=== PATIENT | male | born 1955 | race Caucasian/White ===

== ENCOUNTER 2024-01-23 22:36 | Inpatient (IN) | payer MEDICARE, OTHER ==
[~2024-01-23] VITALS: Ht 185.4 cm; Wt 95.5 kg
[2024-01-24 01:30] VITALS: BP 151/76
[2024-01-24] MEDS ORDERED: INSULIN GL300 UNIT/1 SQ (01:45)
[2024-01-24] MEDS ORDERED: HUMULIN R100 UNIT/1 SC (01:50)
[2024-01-24] MEDS ORDERED: Glucagon Emergen1 MG (01:53)
[2024-01-24] MEDS ORDERED: Glucose Gel38 GM PO (01:53)
[2024-01-24] MEDS ORDERED: Vitamin C100 MG PO (01:55)
[2024-01-24] MEDS ORDERED: COLCHICINE0.6 MG PO (01:55)
[2024-01-24] MEDS ORDERED: ATOR20 PO (01:55)
[2024-01-24] MEDS ORDERED: DIGOX250 MCG PO (01:56)
[2024-01-24] MEDS ORDERED: Florastor250 MG PO (01:57)
[2024-01-24] MEDS ORDERED: FERROUS GLUCON324 M7 PO (01:57)
[2024-01-24] MEDS ORDERED: Prozac20 MG PO (01:57)
[2024-01-24] MEDS ORDERED: K-Dur10 MEQ PO (01:58)
[2024-01-24] MEDS ORDERED: Flomax0.4 MG PO (01:59)
[2024-01-24] MEDS ORDERED: ELIQUIS2.5 MG PO (02:00)
[2024-01-24] MEDS ORDERED: ELIQUIS5 M2 PO (02:02)
[2024-01-24] MEDS ORDERED: CALCIUM 600-VI1 EAC6 PO (02:04)
[2024-01-24] MEDS ORDERED: PANT40 PO (02:05)
[2024-01-24] MEDS ORDERED: Carvedilol12.5 MG PO (02:05)
[2024-01-24] MEDS ORDERED: ROPI1 PO (02:06)
[2024-01-24] MEDS ORDERED: PAXLOVID 150-11 EAC1 PO (02:06)
[2024-01-24] MEDS ORDERED: ALBU90OI INH (02:07)
[2024-01-24] MEDS ORDERED: ACET500 PO (02:07)
[2024-01-24] MEDS ORDERED: ALBU2.5V5 INH (02:08)
[2024-01-24] MEDS ORDERED: BISA5EC PO (02:09)
[2024-01-24] MEDS ORDERED: Magic Bullet10 MG PR (02:10)
[2024-01-24] MEDS ORDERED: CEPACOL THROAT1 EAC1 MM (02:10)
[2024-01-24] MEDS ORDERED: LOPE2C PO (02:12)
[2024-01-24] MEDS ORDERED: LACT10SY PO (02:12)
[2024-01-24] MEDS ORDERED: ALMACONE SUSPE355 ML PO (02:13)
[2024-01-24] MEDS ORDERED: OXYB5 PO (02:14)
[2024-01-24] MEDS ORDERED: NITR.4SL SL (02:14)
[2024-01-24] MEDS ORDERED: OXYC10TA19 PO (02:15)
[2024-01-24] MEDS ORDERED: FT SENNA-S 8.61 EACH PO (02:16)
[2024-01-24] MEDS ORDERED: TRAM50 PO (02:17)
[2024-01-24] MEDS ORDERED: DICLOFENAC SOD100 GM TOP (02:18)
[2024-01-24] MEDS ORDERED: HYDROmorphone HCl/Pf 1MG SYR IV PRN (02:55)
[2024-01-24] MEDS ORDERED: Ondansetron 4 MG SoluTab MM PRN (02:55)
[2024-01-24] MEDS ORDERED: rOPINIRole HCl 2 MG Tab PO SCH (03:00)
[2024-01-24] MEDS ORDERED: Lactated Ringer's 1,000 ML IV SCH (03:10)
[2024-01-24] MEDS ORDERED: Ciprofloxacin 400MG/D5 200ML 200 ML IV SCH (03:21)
[2024-01-24] MEDS ORDERED: MetroNIDAZOLE 500MG/NS 100 ml 100 ML IV SCH (03:22)
[2024-01-24 03:49] VITALS: BP 151/81
[2024-01-24 04:28] LABS: BASOPHILS ABSOLUTE AUTO 0.02 K/mm3 (0.00-0.23); BASOPHILS PERCENT AUTO 0 % (0-2); EOSINOPHILS ABSOLUTE AUTO 0.02 K/mm3 (0.00-0.68); EOSINOPHILS PERCENT AUTO 0 % (0-6); Hematocrit 37.3 % (37.0-53.0); Hemoglobin 11.9 g/dL (13.5-17.5); IMMATURE GRAN ABSOLUTE AUTO 0.06 K/mm3 (0.00-0.10); IMMATURE GRAN PERCENT AUTO 0 % (0-1); LYMPHOCYTES ABSOLUTE AUTO 1.62 K/mm3 (0.84-5.20); LYMPHOCYTES PERCENT AUTO 11 % (21-46); MONOCYTES ABSOLUTE AUTO 1.07 K/mm3 (0.16-1.47); MONOCYTES PERCENT AUTO 7 % (4-13); Mean Corpuscular HGB 27.9 pg (26.0-34.0); Mean Corpuscular HGB Conc 31.9 g/dL (31.5-36.5); Mean Corpuscular Volume 87 fL (80-100); NEUTROPHILS ABSOLUTE AUTO 11.96 K/mm3 (1.96-9.15); NEUTROPHILS PERCENT AUTO 81 % (41-73); Platelet Count 220 K/mm3 (150-400); RDW Coefficient Variation 14.8 % (11.7-14.2); RDW Standard Deviation 47.4 fL (35.1-46.3); Red Blood Cell Count 4.27 M/mm3 (4.30-5.90); White Blood Cell Count 14.75 K/mm3 (4.00-11.30)
[2024-01-24] MEDS ORDERED: Acetaminophen 325 MG TABLET PO PRN (04:45)
[2024-01-24 04:53] LABS: Albumin, Blood 3.5 g/dL (3.4-5.0); Albumin/Globulin Ratio 0.9 (0.8-1.8); Bilirubin, Total 1.3 mg/dL (0.1-1.0); Bun/Creatinine Ratio 18.8 (12.0-20.0); Calcium, Blood 8.7 mg/dL (8.5-10.1); Creatinine, Blood 1.44 mg/dL (0.60-1.20); Potassium, Blood 4.3 mmol/L (3.5-5.5); Total Protein, Blood 7.5 g/dL (6.4-8.2)
[2024-01-24] MEDS ORDERED: Insulin Regular 100 UNIT/ML 10ML Vial SC SCH (06:00)
[2024-01-24] MEDS ORDERED: Pantoprazole Sodium 40 MG Injection IV SCH (06:00)
--- NOTE | 2024-01-24 06:00 | NUR ---
SHIFT SUMMARY MANOLO WAS ALERT AND FULLY ORIENTED WHEN HE ARRIVED TO THE UNIT. PT ABLE TO TRANSFER SELF TO BED W/ SBA. PT HAD CORLEY ON ADMIT, REPLACED WITH NEW CORLEY THIS SHIFT. PT HAS CHRONIC SEVERE BILAT KNEE PAIN. AND ABD PAIN FROM ACUTE WERO. NO INSULIN COVERAGE NEEDED THIS SHIFT. PT KEPT NPO TONIGHT. CURRENTLY RESTING IN BED AT A LOW POSITION W/ CALL LIGHT IN REACH. DIRECT ADMIT, DR SLATER IS ADMITTING
[2024-01-24 06:57] LABS: Source, Urine Foley catheter
[2024-01-24 07:21] LABS: Appearance, Urine Hazy (Clear); Bilirubin, Urine Neg (Neg); Blood, Urine 5+ (Neg); Color, Urine Yellow (P-Yellow); Glucose Qualitative, Urine Neg (Neg); Ketones, Urine Neg (Neg); Leukocyte Esterase, Urine 3+ (Neg); Nitrite, Urine Neg (Neg); Protein, Urine 3+ (Neg); Specific Gravity, Urine 1.015 (1.003-1.022); Urobilinogen, Urine NORM (Normal)
[2024-01-24 07:34] VITALS: BP 138/81
[2024-01-24 07:49] LABS: Bacteria Few /hpf; Squamous Epithelial Cells Not Seen /hpf (Few); Transitional Epithelial Cells Few /hpf (0-Rare); White Blood Cells, Urine 50-100 /hpf (0-5)
[2024-01-24] MEDS ORDERED: Enoxaparin 40 MG/0.4 ML SYR SC SCH (09:00)
[2024-01-24] MEDS ORDERED: Albuterol 2.5 MG/3 ML VIAL INH PRN (12:00)
[2024-01-24] MEDS ORDERED: Budesonide 0.5 MG/2 ML RESP INH SCH (12:05)
[2024-01-24] MEDS ORDERED: Ipratropium/Albuterol SulF 2.5-0.5MG/3 ML Amp INH SCH (12:05)
[2024-01-24 15:12] VITALS: BP 162/72
--- NOTE | 2024-01-24 17:26 | NUR ---
SHIFT SUMMARY PT TOLERATING CLEAR LIQUIDS WELL TODAY. MOSTLY WATER AT THIS TIME. PAIN CONTROLLED PER EMAR, LOCALIZED TO RUQ AND KNEES. PLAN IS FOR PATIENT TO BE NPO AT MIDNIGHT. CAREGIVER, LAISHA, FROM [facility] IN [place] CALLED FOR UPDATE LEFT HER NUMBER AND REQUESTED CALL ONCE DISCHARGE IS PLANNED. [phone], OPTION 2. PT CALLING APPROPRIATLY.
[2024-01-24] MEDS ORDERED: Lactobacil 2-S.Thermo-Bifido 1 1 Cap PO SCH (19:00)
[2024-01-24 19:16] VITALS: BP 157/69
[2024-01-24] MEDS ORDERED: NS 250 ML IV PRN (20:55)
[2024-01-25] VITALS (16 sets, daily range): BP systolic 115–174; BP diastolic 59–93
[2024-01-25 04:56] LABS: BASOPHILS ABSOLUTE AUTO 0.02 K/mm3 (0.00-0.23); BASOPHILS PERCENT AUTO 0 % (0-2); EOSINOPHILS ABSOLUTE AUTO 0.02 K/mm3 (0.00-0.68); EOSINOPHILS PERCENT AUTO 0 % (0-6); Hematocrit 33.2 % (37.0-53.0); Hemoglobin 10.8 g/dL (13.5-17.5); IMMATURE GRAN ABSOLUTE AUTO 0.17 K/mm3 (0.00-0.10); IMMATURE GRAN PERCENT AUTO 1 % (0-1); LYMPHOCYTES ABSOLUTE AUTO 1.33 K/mm3 (0.84-5.20); LYMPHOCYTES PERCENT AUTO 8 % (21-46); MONOCYTES ABSOLUTE AUTO 1.06 K/mm3 (0.16-1.47); MONOCYTES PERCENT AUTO 6 % (4-13); Mean Corpuscular HGB 28.1 pg (26.0-34.0); Mean Corpuscular HGB Conc 32.5 g/dL (31.5-36.5); Mean Corpuscular Volume 86 fL (80-100); Mean Platelet Volume 11.3 fL (9.1-12.4); NEUTROPHILS ABSOLUTE AUTO 13.97 K/mm3 (1.96-9.15); NEUTROPHILS PERCENT AUTO 84 % (41-73); Platelet Count 185 K/mm3 (150-400); RDW Coefficient Variation 14.8 % (11.7-14.2); RDW Standard Deviation 47.2 fL (35.1-46.3); Red Blood Cell Count 3.85 M/mm3 (4.30-5.90); White Blood Cell Count 16.57 K/mm3 (4.00-11.30)
[2024-01-25 05:24] LABS: Albumin, Blood 2.7 g/dL (3.4-5.0); Albumin/Globulin Ratio 0.7 (0.8-1.8); Bilirubin, Total 0.9 mg/dL (0.1-1.0); Bun/Creatinine Ratio 19.9 (12.0-20.0); Calcium, Blood 8.1 mg/dL (8.5-10.1); Creatinine, Blood 1.51 mg/dL (0.60-1.20); Globulin, Blood 3.8 g/dL (2.2-4.0); Total Protein, Blood 6.5 g/dL (6.4-8.2)
--- NOTE | 2024-01-25 06:46 | NUR ---
SHIFT SUMMARY NOC. PT ADMIT FOR ACUTE WERO. PT NPO SINCE 0000. PT MEDICATED FOR PAIN WITH REPORTED RELIEF. CHRONIC CORLEY DRAINING DARK YELLOW URINE TO GRAVITY. FLUIDS RUNNING ORDERED. NEW ORDERS OBTAINED FOR TELEMETRY. BINDER LAYER REPORTED TO THIS RN THAT PT HAD A HEART RATE OF 180 BPM THAT LASTED LESS THAN 30 SECONDS AT 0430. THIS RN VISUALIZED PT AND AWOKE PT WHO DENIED SOB OR CP. NEW ORDERS OBTAINED FOR TELEMETRY. PT RESTED WITH EYES CLOSED AND CALL LIGHT IN REACH.
[2024-01-25] MEDS ORDERED: Indocyanine Green 25 MG Vial IV STA (10:34)
[2024-01-25] MEDS ORDERED: Lactated Ringer's 1,000 ML IV SCH ×2 (10:40→12:40)
--- NOTE | 2024-01-25 13:27 | NUR ---
PRE SURGERY NOTE PT A&OX4, BREATHING RA, IV TO R FA RUNNING LR, VSS. CORLEY DRAINING CLEAR YELLOW FLUID C MINIMAL SEDIMENT. Patient confirms NPO status and agrees with scheduled surgery. Pre-Op teaching done. Pt verbalizes understanding.TELE BOX SENT TO PACU. History, Chart, Medications and Allergies reviewed before start of procedure. PT TRANSFERRED BY BED.
[2024-01-25] MEDS ORDERED: Rocuronium Bromide 10 MG/ML 5ML Injection IV ONE (13:38)
[2024-01-25] MEDS ORDERED: propofoL 20 ML IV ONE (13:39)
[2024-01-25] MEDS ORDERED: FentaNYL Citrate 50 MCG/ML 2 ML Injection ONE ×2 (13:39→17:00)
[2024-01-25] MEDS ORDERED: Bupivacaine 0.5% HCl 5 MG/ML 30MLVIAL ONE (13:51)
[2024-01-25] MEDS ORDERED: Ondansetron HCl 2 MG / ML 2ML Vial ONE ×2 (14:29→17:09)
[2024-01-25] MEDS ORDERED: Sugammadex Sodium 200 MG/2ML SDV (100 MG/ML) ONE (14:30)
--- NOTE | 2024-01-25 18:06 | NUR ---
POST OP S/P ROBOTIC LAP WERO. X3 LAP SITES WITH EXOFIN CDI AND ANTHONY DRAIN RLQ WITH SCANT SS DRAINAGE. MEDICATED FOR PAIN/NAUSEA IN PACU BEFORE ARRIVAL TO UNIT. ON 2L O2 VIA NC TO MAINTAIN SATS >90%. ENCOURAGING DEEP BREATHING. WHEEZING HEARD T/O. RT NOTIFIED FOR PRN BREATHING TX. BARNEY PATENT. IVF INFUSING PER ORDERS. POST OP VSS AND IN PROGRESS. CALL LIGHT WITHIN REACH.
[2024-01-25] MEDS ORDERED: Insulin Regular 100 UNIT/ML 10ML Vial SC SCH (21:00)
[2024-01-26 02:09] VITALS: BP 134/74
[2024-01-26 04:21] VITALS: BP 143/69
[2024-01-26 06:58] VITALS: BP 127/73
--- NOTE | 2024-01-26 07:22 | NUR ---
SHIFT SUMMARY NOC. PT POD 1 FOR LAP WERO, DAPHNE, AND DRAINAGE OF ABCESS. PT TOLERATING CLEARS AND VOIDING VIA CORLEY. PT MEDICATED FOR PAIN WITH REPORTED RELIEF OF SX. PT NEEDED A BREATHING TREATMENT AND COUGHING UP SPUTUM. LAP SITES C/D/I AND ANTHONY DRAIN PRODUCING OUTPUT. PT ON TELEMETRY AND V PACED AFIB, NO EVENTS REPORTED. PT TITRATED DOWN TO RA. PT RESTED WITH EYES CLOSED AND CALL LIGHT IN REACH.
[2024-01-26 10:16] LABS: BASOPHILS ABSOLUTE AUTO 0.01 K/mm3 (0.00-0.23); BASOPHILS PERCENT AUTO 0 % (0-2); EOSINOPHILS ABSOLUTE AUTO 0.08 K/mm3 (0.00-0.68); EOSINOPHILS PERCENT AUTO 1 % (0-6); Hematocrit 29.1 % (37.0-53.0); Hemoglobin 9.5 g/dL (13.5-17.5); IMMATURE GRAN ABSOLUTE AUTO 0.06 K/mm3 (0.00-0.10); IMMATURE GRAN PERCENT AUTO 1 % (0-1); LYMPHOCYTES ABSOLUTE AUTO 1.41 K/mm3 (0.84-5.20); LYMPHOCYTES PERCENT AUTO 11 % (21-46); MONOCYTES ABSOLUTE AUTO 0.69 K/mm3 (0.16-1.47); MONOCYTES PERCENT AUTO 5 % (4-13); Mean Corpuscular HGB 28.5 pg (26.0-34.0); Mean Corpuscular HGB Conc 32.6 g/dL (31.5-36.5); Mean Corpuscular Volume 87 fL (80-100); Mean Platelet Volume 10.9 fL (9.1-12.4); NEUTROPHILS ABSOLUTE AUTO 10.69 K/mm3 (1.96-9.15); NEUTROPHILS PERCENT AUTO 83 % (41-73); Platelet Count 211 K/mm3 (150-400); RDW Standard Deviation 48.7 fL (35.1-46.3); Red Blood Cell Count 3.33 M/mm3 (4.30-5.90); White Blood Cell Count 12.94 K/mm3 (4.00-11.30)
[2024-01-26 11:04] LABS: Bun/Creatinine Ratio 20.1 (12.0-20.0); Calcium, Blood 7.7 mg/dL (8.5-10.1); Creatinine, Blood 1.54 mg/dL (0.60-1.20); Potassium, Blood 3.7 mmol/L (3.5-5.5)
[2024-01-26 15:16] VITALS: BP 156/87
--- NOTE | 2024-01-26 15:58 | NUR ---
ASSUMED CARE OF PT FROM MELINDA Crowe RN. PT RESTING IN BED, CALL LIGHT IN REACH. DENIES ANY NEEDS AT THIS TIME.
--- NOTE | 2024-01-26 16:09 | NUR ---
SHIFT SUMMARY PT POD 1 LAP WERO. ANTHONY DRAIN WITH MOD AMT SS DRAINAGE THIS SHIFT. TOLERATING CLEAR LIQUIDS WITH NO N/V. TOLERABLE PAIN. PT WAS UP TO CHAIR FOR APROX 1.5 HRS THEN REFUSED TO BE UP ANY LONGER. PT EDUCATED ON THE NEED TO AMBULATE
--- NOTE | 2024-01-26 17:16 | NUR ---
SUMMARY NO ACUTE CHANGES SINCE ASSUMING CARE OF PT. PT REQUESTED PAIN MEDS AFTER EPISODE OF SNEEZING THAT CAUSED INCREASED ABDOMINAL PAIN. IV ABX INFUSING PER ORDERS. CALL LIGHT IN REACH.
[2024-01-26 19:44] VITALS: BP 138/86
[2024-01-27 02:49] VITALS: BP 134/81
[2024-01-27 05:11] LABS: BASOPHILS ABSOLUTE AUTO 0.02 K/mm3 (0.00-0.23); BASOPHILS PERCENT AUTO 0 % (0-2); EOSINOPHILS ABSOLUTE AUTO 0.18 K/mm3 (0.00-0.68); EOSINOPHILS PERCENT AUTO 2 % (0-6); Hematocrit 29.8 % (37.0-53.0); Hemoglobin 9.5 g/dL (13.5-17.5); IMMATURE GRAN ABSOLUTE AUTO 0.03 K/mm3 (0.00-0.10); IMMATURE GRAN PERCENT AUTO 0 % (0-1); LYMPHOCYTES PERCENT AUTO 16 % (21-46); MONOCYTES ABSOLUTE AUTO 0.67 K/mm3 (0.16-1.47); MONOCYTES PERCENT AUTO 8 % (4-13); Mean Corpuscular HGB 27.7 pg (26.0-34.0); Mean Corpuscular HGB Conc 31.9 g/dL (31.5-36.5); Mean Corpuscular Volume 87 fL (80-100); Mean Platelet Volume 10.8 fL (9.1-12.4); NEUTROPHILS ABSOLUTE AUTO 5.87 K/mm3 (1.96-9.15); NEUTROPHILS PERCENT AUTO 73 % (41-73); Platelet Count 235 K/mm3 (150-400); Red Blood Cell Count 3.43 M/mm3 (4.30-5.90); White Blood Cell Count 8.07 K/mm3 (4.00-11.30)
[2024-01-27] MEDS ORDERED: OxyCODONE HCL 5 MG TAB PO PRN ×2 (05:15→11:20)
[2024-01-27 05:26] LABS: Calcium, Blood 7.6 mg/dL (8.5-10.1); Creatinine, Blood 1.42 mg/dL (0.60-1.20); Potassium, Blood 3.6 mmol/L (3.5-5.5)
[2024-01-27 07:26] VITALS: BP 144/73
--- NOTE | 2024-01-27 07:43 | NUR ---
SHIFT SUMMARY NOC. PT POD 2 FOR LAP WERO, DAPHNE, AND DRAINAGE OF ABCESS. PT TOLERATING CLEARS AND REPORTS BEING EAGER TO ADVANCE DIET. PT VOIDING VIA CROLEY. PT MEDICATED FOR PAIN WITH REPORTED RELIEF, NEW ORDERS FOR OXY RECEIVED. PT NEEDED BREATHING TREATMENTS THIS SHIFT WITH RT WITH IMPROVED BREATHING. PT COUGHING UP SPUTUM. LAP SITES C/D/I AND ANTHONY PRODUCING OUTPUT, ANTHONY DRAIN HAD MINIMAL LEAKAGE, DRESSING REINFORCED WITH DRAIN SPONGES OVER CHG TEGADERM. PT ON TELEMETRY WITH NO REPORTED EVENTS, V PACED IN 60S, AFIB. PT RESTED WITH EYES CLOSED AND CALL LIGHT IN REACH.
[2024-01-27] MEDS ORDERED: Nitroglycerin 0.4 MG SUBL SL PRN (11:25)
[2024-01-27] MEDS ORDERED: Bisacodyl 5 MG TabEC PO PRN (11:25)
[2024-01-27] MEDS ORDERED: oxyBUTYnin chloride 5 MG TAB PO PRN (11:25)
[2024-01-27] MEDS ORDERED: Docusate Sodium/Senna 1 Tab PO PRN (11:40)
[2024-01-27] MEDS ORDERED: Digoxin 0.25 MG Tab PO SCH (12:00)
[2024-01-27] MEDS ORDERED: FLUoxetine HCL 20 MG CAP PO SCH (12:00)
[2024-01-27 14:46] VITALS: BP 142/82
[2024-01-27] MEDS ORDERED: Carvedilol 6.25 MG Tab PO SCH (17:00)
--- NOTE | 2024-01-27 18:16 | NUR ---
SHIFT SUMMARY PT A/OX4 AND COOPERATIVE OF CARE. PT ABLE TO EXPRESS NEEDS AND CALLED APPROPIATE. PT VSS THROUGHOUT SHIFT. PT REPORTED SOME PAIN TO HIS ABD BUT DID NOT REQUEST PAIN MEDS, MANAGED WITH HEAT BLANKET AND REPOSITIOINING. PT UP TO RECLINER FOR ROUGHLY HALF OF SHIFT, REPORTED SOME SORENESS TO HIS COCCYX. PT UP VIA FWW, SBA. ANTHONY DRAIN DRAINING SEROSANGUINEOUS DRAINAGE. SEE CHART FOR OUTPUT. PT DIET ADVANCED TO REG DIET, TOLERATED WELL. CORLEY REMINED IN PLACE DRAINING TO GRAVITY, YELLOW URINE.
[2024-01-27 20:26] VITALS: BP 147/69
[2024-01-27] MEDS ORDERED: Atorvastatin 10 MG Tab PO SCH (21:00)
[2024-01-27] MEDS ORDERED: Sennosides 8.6 MG Tab PO SCH (21:00)
[2024-01-27] MEDS ORDERED: Calcium/Vit D 600 mg-400 Unit Tab PO SCH (21:00)
[2024-01-27] MEDS ORDERED: Insulin Glargine-Yfgn 100 Unit/mL 3 ML SYR SC SCH (21:00)
[2024-01-27] MEDS ORDERED: GuaiFENesin 600 MG TabCR PO SCH (22:40)
[2024-01-28] MEDS ORDERED: OxyCODONE HCL 5 MG TAB PO ONE (01:50)
[2024-01-28 03:57] LABS: BASOPHILS ABSOLUTE AUTO 0.02 K/mm3 (0.00-0.23); BASOPHILS PERCENT AUTO 0 % (0-2); EOSINOPHILS PERCENT AUTO 4 % (0-6); Hemoglobin 9.6 g/dL (13.5-17.5); IMMATURE GRAN ABSOLUTE AUTO 0.03 K/mm3 (0.00-0.10); IMMATURE GRAN PERCENT AUTO 0 % (0-1); LYMPHOCYTES ABSOLUTE AUTO 1.62 K/mm3 (0.84-5.20); LYMPHOCYTES PERCENT AUTO 21 % (21-46); MONOCYTES ABSOLUTE AUTO 0.61 K/mm3 (0.16-1.47); MONOCYTES PERCENT AUTO 8 % (4-13); Mean Corpuscular HGB 27.8 pg (26.0-34.0); Mean Corpuscular Volume 87 fL (80-100); Mean Platelet Volume 10.1 fL (9.1-12.4); NEUTROPHILS ABSOLUTE AUTO 5.19 K/mm3 (1.96-9.15); NEUTROPHILS PERCENT AUTO 67 % (41-73); Platelet Count 258 K/mm3 (150-400); RDW Coefficient Variation 15.1 % (11.7-14.2); RDW Standard Deviation 48.4 fL (35.1-46.3); Red Blood Cell Count 3.45 M/mm3 (4.30-5.90); White Blood Cell Count 7.77 K/mm3 (4.00-11.30)
[2024-01-28 04:08] VITALS: BP 139/65
[2024-01-28 04:16] LABS: Bun/Creatinine Ratio 20.1 (12.0-20.0); Calcium, Blood 7.5 mg/dL (8.5-10.1); Creatinine, Blood 1.34 mg/dL (0.60-1.20); Potassium, Blood 3.7 mmol/L (3.5-5.5)
--- NOTE | 2024-01-28 04:16 | NUR ---
SHIFT SUMMARY POD3 LAP WERO W/ ANTHONY PLACEMENT. LAP SITES ARE C/D/I. ANTHONY DRAIN IS INTACT, BULB COMPRESSED. SS DRAINAGE NOTED. SCANT DRAINAGE T/O THE NIGHT. VSS. PT SLEPT ON AND OFF T/O THE NIGHT. MEDICATED FOR PAIN PER EMAR. RECIEVED A ONE TIME DOSE OF EXTRA PAIN MEDICATION AFTER A COUGHING EPISODE. TOLLERABLE RELIEF NOTED. PT TOLLERTING PO INTAKE W/O N/V. IV ABX INFUSING PER EMAR. OVERALL, NO ACUTE EVENTS NOTED. PLAN FOR D/C TO REEDSPORT TODAY.
[2024-01-28] MEDS ORDERED: Pantoprazole Sodium 40 MG Tab PO SCH (06:00)
[2024-01-28 07:45] VITALS: BP 132/71
[2024-01-28] MEDS ORDERED: Tamsulosin HCl 0.4 MG Cap PO SCH (09:00)
[2024-01-28] MEDS ORDERED: Polyethylene Glycol 3350 17 gm PO SCH (09:00)
[2024-01-28] MEDS ORDERED: Potassium Chloride 20 MEQ TabCR PO SCH (09:00)
[2024-01-28] MEDS ORDERED: CIPR500 PO (11:09)
[2024-01-28] MEDS ORDERED: METR500 PO (11:10)
--- NOTE | 2024-01-28 13:04 | NUR ---
DISCHARGE PT LEFT VIA WHEELCHAIR. REPORT CALLED TO [facility]. REPORT GIVEN TO RECIEVING NURSE. MANOLO ABLE TO STAND AND TRANSFER TO WHEELCHAIR WELL. ANTHONY DRAIN DRESSING CHANGED TODAY. ALL INNSTRUCTIONS SENT WITH PATIENT. IV REMOVED WNL. PT PASSING GAS. LAP SITS REMAIN CDI.
== END 2024-01-28 13:07 | disposition home or self-care (01) | DRG 263 ==
LOC: SURS 22:36
PROVIDERS: Internal Medicine; Surgery; ADMIT Family Medicine
PROC: 0DBU4ZZ Excision of Omentum, Percutaneous Endoscopic Approach (ICD-10-PCS; 2024-01-25)
PROC: 0W9G4ZZ Drainage of Peritoneal Cavity, Percutaneous Endoscopic Approach (ICD-10-PCS; 2024-01-25)
PROC: 0FT44ZZ Resection of Gallbladder, Percutaneous Endoscopic Approach (ICD-10-PCS; principal; 2024-01-25 11:15)
DX: K80.00 Calculus of gallbladder with acute cholecystitis without obstruction (principal); K65.1 Peritoneal abscess; K66.0 Peritoneal adhesions (postprocedural) (postinfection); J44.1 Chronic obstructive pulmonary disease with (acute) exacerbation; K82.2 Perforation of gallbladder; K21.9 Gastro-esophageal reflux disease without esophagitis; I48.91 Unspecified atrial fibrillation; I50.9 Heart failure, unspecified; E11.22 Type 2 diabetes mellitus with diabetic chronic kidney disease; I13.0 Hypertensive heart and chronic kidney disease with heart failure and stage 1 through stage 4 chronic kidney disease, or unspecified chronic kidney disease; N18.9 Chronic kidney disease, unspecified; G89.29 Other chronic pain; M25.562 Pain in left knee; M25.561 Pain in right knee; G25.81 Restless legs syndrome; I25.2 Old myocardial infarction; Z98.84 Bariatric surgery status; Z95.5 Presence of coronary angioplasty implant and graft; Z79.01 Long term (current) use of anticoagulants; Z79.4 Long term (current) use of insulin; Z79.891 Long term (current) use of opiate analgesic; Z79.899 Other long term (current) drug therapy; Z88.8 Allergy status to other drugs, medicaments and biological substances; Z95.0 Presence of cardiac pacemaker; Z99.3 Dependence on wheelchair
CPT/HCPCS: 36415; 51702; 80048; 80053; 81001; 82330; 82947; 85025; 87086; 88304; 88305; 94640; 94664; 94762; 96365; 96366; 96367; 96375; 96376; A9270; G0378; J0744; J1170; J1650; J1815; J2405; J2470; J2704; J3010; J7050; J7120